=== PATIENT | female | born 1965 | race Caucasian/White ===

== ENCOUNTER 2017-06-06 11:22 | Day surgery (SDC) | payer BC ==
[~2017-06-06] VITALS: Ht 152.4 cm; Wt 80.9 kg
[2017-06-06 11:54] VITALS: Ht 152.4 cm; Wt 80.9 kg
[2017-06-06] MEDS ORDERED: LISI40TA9 PO (12:42)
[2017-06-06] MEDS ORDERED: AMLO1CAP14 PO (12:42)
[2017-06-06] MEDS ORDERED: PROPOFOL 20 ML ONE (12:58)
[2017-06-06] MEDS ORDERED: GLYCOPYRROLATE 0.4 MG INJ ONE (12:58)
[2017-06-06] MEDS ORDERED: FENTAnyl 50 MCG/ML VIAL ONE (12:58)
[2017-06-06] MEDS ORDERED: PHENYLephrine (100 MCG/ML) 5ML SYG ONE (12:58)
[2017-06-06] MEDS ORDERED: LIDOCAINE 2% (SDV) 5 ML INJ ONE (12:58)
[2017-06-06 13:02] VITALS: BP 123/75; PULSE 60; RESP 16
[2017-06-06 14:16] VITALS: BP 106/70; RESP 20
--- NOTE | 2017-06-08 13:06 | GILP ---
DATE OF PROCEDURE: 06/06/2017 PROCEDURES PERFORMED: 1. Esophagogastroduodenoscopy and biopsy. 2. Colonoscopy. SURGEON: Miryam Diaz MD PREOPERATIVE DIAGNOSIS: 1. Abdominal pain. 2. Screening colonoscopy. POSTOPERATIVE DIAGNOSES: 1. Gastritis with erosions. 2. Gastric mucosal biopsies were taken for H. pylori test. 3. Colonoscopy all the way to the cecum. 4. Occasional diverticulosis of the colon. 5. Internal hemorrhoids. 6. No colon neoplasm was identified. INDICATION: Ms. Galilea Flores is a 50-year-old female patient who had upper abdominal pain not responding to therapy. The patient also needed a screening colonoscopy. The procedure and possible complications were well explained to the patient. She understood and consented to the procedures. DESCRIPTION OF PROCEDURE: Under the influence of anesthesia, the gastroscope was carefully introduced into the esophagus. Under direct vision, it was advanced to the stomach and to the pylorus into the duodenal bulb and descending duodenum. Findings esophagus: Mucosa was normal. Stomach: The patient had gastritis with erosions. Gastric mucosal biopsies were taken for H. pylori test. Duodenum was normal The colonoscope was carefully introduced in the rectum. Under direct vision, it was advanced all the way to the cecum. Findings: The patient had occasional diverticulosis of the colon. She also had internal hemorrhoids. No colon neoplasm was identified. The patient tolerated the procedure very well, and there were no complications from the procedure. At the end of procedure, she was awake with stable vital signs and she was discharged home in the care of her family. IMPRESSION: 1. Gastritis with erosions. 2. Gastric mucosal biopsies were taken for H. pylori test. 3. Colonoscopy all the way to the cecum. 4. Occasional diverticulosis of the colon. 5. Internal hemorrhoids. 6. No colon neoplasm was identified. PLAN: 1. Nexium 40 mg p.o. q.a.m. 2. Linzess 145 mcg p.o. daily a.m. before breakfast. 3. Await H. pylori test report. 4. Next screening colonoscopy in 10 years. Dictated By: MD KACI Katz/gulshan/ec /Document#: [id number]
== END 2017-06-06 15:45 | disposition home or self-care (01) ==
LOC: GIL 11:22
PROVIDERS: ATTEND Internal Medicine Gastroenterology
DX: Z12.11 Encounter for screening for malignant neoplasm of colon (principal); K57.30 Diverticulosis of large intestine without perforation or abscess without bleeding; K64.8 Other hemorrhoids; K29.70 Gastritis, unspecified, without bleeding; M19.90 Unspecified osteoarthritis, unspecified site; K21.9 Gastro-esophageal reflux disease without esophagitis; I10 Essential (primary) hypertension; E66.9 Obesity, unspecified; Z68.34 Body mass index [BMI] 34.0-34.9, adult; G47.30 Sleep apnea, unspecified
CPT/HCPCS: 43239; 45378; 87081; J3010; J2370

== ENCOUNTER 2018-03-19 08:34 | Day surgery (SDC) | END 2018-03-19 10:12 | disposition home or self-care (01) ==